=== PATIENT | female | born 1950 | race Caucasian/White ===

== ENCOUNTER 2024-08-09 12:30 | Emergency (ER) | payer MEDICARE ==
--- NOTE | 2024-08-09 12:32 | ED ---
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 ROS Other: All systems not noted in ROS Statement are negative. General Exam General appearance: alert, in no apparent distress Head exam: Present: normocephalic, normal inspection. Absent: atraumatic (8 cm facial laceration) Eye exam: Present: normal appearance, PERRL, EOMI. Absent: scleral icterus, conjunctival injection, periorbital swelling ENT exam: Present: normal exam, mucous membranes moist Neck exam: Present: normal inspection. Absent: tenderness, meningismus, lymphadenopathy Respiratory exam: Present: normal lung sounds bilaterally. Absent: respiratory distress, wheezes, rales, rhonchi, stridor Cardiovascular Exam: Present: regular rate, normal rhythm, normal heart sounds. Absent: systolic murmur, diastolic murmur, rubs, gallop, clicks GI/Abdominal exam: Present: soft, normal bowel sounds. Absent: distended, tenderness, guarding, rebound, rigid Extremities exam: Present: normal inspection, full ROM, normal capillary refill. Absent: tenderness, pedal edema, joint swelling, calf tenderness Back exam: Present: normal inspection Neurological exam: Present: alert, oriented X3, CN II-XII intact Psychiatric exam: Present: normal affect, normal mood Skin exam: Present: warm, dry, intact, normal color. Absent: rash Course Vital Signs 01/08/09/24 08/09/24 12:38 12:40 13:04 Temperature Pulse Rate 72 68 Respiratory 18 18 20 Rate Blood Pressure 190/67 O2 Sat by Pulse 83 L 100 Oximetry 08/09/24 08/09/24 08/09/24 13:15 14:00 15:06 Temperature Pulse Rate 67 71 77 Respiratory 16 16 16 Rate Blood Pressure 194/70 178/70 156/49 O2 Sat by Pulse 100 99 100 Oximetry 08/09/24 15:30 Temperature 97.8 F Pulse Rate Respiratory Rate Blood Pressure O2 Sat by Pulse Oximetry - Reevaluation(s) Reevaluation #1: 08/09/24 13:02 Medical records reviewed Reevaluation #2: Patient has no change in symptoms here in the ER Reevaluation #3: Patient informed of results questions answered Reevaluation #4: Was pt. sent in by a medical professional or institution (, MAYUR, HUMAN RESOURCES ADVISOR, urgent care, hospital, or fpc...) When possible be specific @ -no Did you speak to anyone other than the patient for history (EMS, parent, family, police, friend...)? What history was obtained from this source @ -no Did you review nursing and triage notes (agree or disagree)? Why? @ -agree Are old charts reviewed (outside hosp., previous admission, EMS record, old EKG, old radiological studies, urgent care reports/EKG's, fpc records)? Report findings @ -yes Differential Diagnosis (chest pain, altered mental status, abdominal pain women, abdominal pain men, vaginal bleeding, weakness, fever, dyspnea, syncope, headache, dizziness, GI bleed, back pain, seizure, CVA, palpatations, mental health, musculoskeletal)? @ -prior EKG interpreted by me (3pts min.). @ -no X-rays interpreted by me (1pt min.). @ -no CT interpreted by me (1pt min.). @ -yes negative for acute disease U/S interpreted by me (1pt. min.). @ -no What testing was considered but not performed or refused? (CT, X-rays, U/S, labs)? Why? @ -none What meds were considered but not given or refused? Why? @ -none Did you discuss the management of the patient with other professionals (professionals i.e. Dr., PA, HUMAN RESOURCES ADVISOR, lab, RT, psych nurse, pediatric social worker, welt butter hand, teacher, chief information officer, complex case manager)? Give summary @ -no Was smoking cessation discussed for >3mins.? @ -no Was critical care preformed (if so, how long)? @ -no Were there social determinants of health that impacted care today? How? (Homelessness, low income, unemployed, alcoholism, drug addiction, transportation, low edu. Level, literacy, decrease access to med. care, fdc, rehab)? @ -none Was there de-escalation of care discussed even if they declined (Discuss DNR or withdrawal of care, Hospice)? DNR status @ -no What co-morbidities impacted this encounter? (DM, HTN, Smoking, COPD, CAD, Cancer, CVA, ARF, Chemo, Hep., AIDS, mental health diagnosis, sleep apnea, morbid obesity)? @ -none Was patient admitted / discharged? Hospital course, mention meds given and route, prescriptions, significant lab abnormalities, going to OR and other pertinent info. @ - 74 female with fall and head injury facial laceration repaired here in the ER patient can be discharged home Undiagnosed new problem with uncertain prognosis? @ -no Drug Therapy requiring intensive monitoring for toxicity (Heparin, Nitro, Insulin, Cardizem)? @ -no Were any procedures done? @ - laceration repair Diagnosis/symptom? @ -Fall, facial laceration repaired, head injury Acute, or Chronic, or Acute on Chronic? @ -Acute Uncomplicated (without systemic symptoms) or Complicated (systemic symptoms)? @ -Complicated Side effects of treatment? @ -no Exacerbation, Progression, or Severe Exacerbation? @ -exacerbation Poses a threat to life or bodily function? How? (Chest pain, [place], [place], pneumonia, PE, COPD, DKA, ARF, appy, cholecystitis, CVA, Diverticulitis, Homicidal, Suicidal, threat to staff... and all critical care pts) @ -yes head injury on Coumadin fall laceration Reevaluation #5: Differential Headache: Migraine, tension, cluster, carbon monoxide, central venous thrombosis, pension karma temporal arteritis, acute closure glaucoma, intercranial hemorrhage, mastoiditis, sinusitis, head injury, this is not meant to be an all-inclusive list. Procedures - Laceration Laceration #1 Consent Obtained: verbal consent Indication: laceration Site: face Size (cm): 8 Description: linear, stellate Anesthetic Used: lidocaine 1%, with epi Pre-repair: wound explored, irrigated extensively, deep structures intact Type of Sutures: nylon Technique: simple, interrupted Complications: pain Medical Decision Making - Medical Decision Making 74 female with fall and head injury facial laceration repaired here in the ER patient can be discharged home - Lab Data Result diagrams: 08/09/24 12:56 08/09/24 12:56 Lab Results 08/09/24 08/09/24 08/09/24 Range/Units 12:56 12:56 12:56 WBC 5.4 (3.8-10.6) k/uL RBC 3.50 L (3.80-5.40) m/uL Hgb 9.7 L (11.4-16.0) gm/dL Hct 29.9 L (34.0-46.0) % MCV 85.6 (80.0-100.0) fL MCH 27.9 (25.0-35.0) pg MCHC 32.6 (31.0-37.0) g/dL RDW 16.8 H (11.5-15.5) % Plt Count 117 L (150-450) k/uL MPV 8.1 Neutrophils % 74 % Lymphocytes % 15 % Monocytes % 6 % Eosinophils % 3 % Basophils % 0 % Neutrophils # 4.0 (1.3-7.7) k/uL Lymphocytes # 0.8 L (1.0-4.8) k/uL Monocytes # 0.3 (0-1.0) k/uL Eosinophils # 0.2 (0-0.7) k/uL Basophils # 0.0 (0-0.2) k/uL Hypochromasia Slight Anisocytosis Slight PT 16.8 H (10.0-12.5) sec INR 1.6 H (<1.2) APTT 28.3 (22.0-30.0) sec Sodium 139 (137-145) mmol/L Potassium 4.7 (3.5-5.1) mmol/L Chloride 104 (98-107) mmol/L Carbon Dioxide 26 (22-30) mmol/L Anion Gap 9 mmol/L BUN 30 H (7-17) mg/dL Creatinine 1.65 H (0.52-1.04) mg/dL Est GFR (CKD-EPI)AfAm 35 (>60 ml/min/1.73 sqM) Est GFR (CKD-EPI)NonAf 30 (>60 ml/min/1.73 sqM) Glucose 98 (74-99) mg/dL Calcium 9.1 (8.4-10.2) mg/dL Phosphorus 5.0 H (2.5-4.5) mg/dL Magnesium 1.9 (1.6-2.3) mg/dL Total Bilirubin 0.5 (0.2-1.3) mg/dL AST 31 (14-36) U/L ALT 19 (4-34) U/L Alkaline Phosphatase 109 (38-126) U/L Troponin I (0.000-0.034) ng/mL NT-Pro-B Natriuret Pep 5370 pg/mL Total Protein 6.3 (6.3-8.2) g/dL Albumin 4.2 (3.5-5.0) g/dL 08/09/24 Range/Units 12:56 WBC (3.8-10.6) k/uL RBC (3.80-5.40) m/uL Hgb (11.4-16.0) gm/dL Hct (34.0-46.0) % MCV (80.0-100.0) fL MCH (25.0-35.0) pg MCHC (31.0-37.0) g/dL RDW (11.5-15.5) % Plt Count (150-450) k/uL MPV Neutrophils % % Lymphocytes % % Monocytes % % Eosinophils % % Basophils % % Neutrophils # (1.3-7.7) k/uL Lymphocytes # (1.0-4.8) k/uL Monocytes # (0-1.0) k/uL Eosinophils # (0-0.7) k/uL Basophils # (0-0.2) k/uL Hypochromasia Anisocytosis PT (10.0-12.5) sec INR (<1.2) APTT (22.0-30.0) sec Sodium (137-145) mmol/L Potassium (3.5-5.1) mmol/L Chloride (98-107) mmol/L Carbon Dioxide (22-30) mmol/L Anion Gap mmol/L BUN (7-17) mg/dL Creatinine (0.52-1.04) mg/dL Est GFR (CKD-EPI)AfAm (>60 ml/min/1.73 sqM) Est GFR (CKD-EPI)NonAf (>60 ml/min/1.73 sqM) Glucose (74-99) mg/dL Calcium (8.4-10.2) mg/dL Phosphorus (2.5-4.5) mg/dL Magnesium (1.6-2.3) mg/dL Total Bilirubin (0.2-1.3) mg/dL AST (14-36) U/L ALT (4-34) U/L Alkaline Phosphatase (38-126) U/L Troponin I 0.014 (0.000-0.034) ng/mL NT-Pro-B Natriuret Pep pg/mL Total Protein (6.3-8.2) g/dL Albumin (3.5-5.0) g/dL - EKG Data -: EKG Interpreted by Me (EKG is sinus 66 MT 182 QRS 172 QTc 517) - Radiology Data Radiology results: report reviewed (CT brain C-spine negative for acute disease, CT facial bones chest and pelvis x-ray negative for acute disease), image reviewed Disposition Clinical Impression: Fall, Head injury, Coumadin toxicity, Laceration of forehead Disposition: HOME SELF-CARE Condition: Fair Instructions (If sedation given, give patient instructions): Care For Your Stitches (ED), Laceration (ED), Fall Prevention for Older Adults (ED) Is patient prescribed a controlled substance at d/c from ED?: No Referrals: Gordy Santana DO [Primary Care Provider] - 1-2 days Time of Disposition: 14:40
--- NOTE | 2024-08-09 12:56 | XR ---
EXAMINATION TYPE: XR chest 1V DATE OF EXAM: 08/09/2024 12:51 PM COMPARISON: None TECHNIQUE: XR chest 1V Frontal view of the chest. CLINICAL INDICATION:Female, 74 years old with history of fall; FINDINGS: Lungs/Pleura: There is no evidence of pleural effusion, focal consolidation, or pneumothorax. Heart/mediastinum: Cardiomediastinal silhouette is enlarged. Prominent pulmonary vasculature central ly. Musculoskeletal: No acute osseous pathology. Midline sternotomy wires are noted. Other: Right axillary surgical clips. IMPRESSION: Cardiomegaly and mild pulmonary vascular congestion. Correlate with BNP for congestive heart failure. [facility], , 08/09/2024 12:53 PM
[2024-08-09] MEDS: ONDANSETRON 4 MG/2 ML VIAL IVP STA (13:00)
[2024-08-09] MEDS: MORPHINE SULFATE 4 MG/ML SYRINGE IV STA (13:00)
[2024-08-09] MEDS: SODIUM CHLORIDE 0.9% 1,000 ML IV STA (13:02)
--- NOTE | 2024-08-09 13:12 | CT ---
EXAMINATION TYPE: CT brain nasra wo con DATE OF EXAM: 08/09/2024 COMPARISON: None CLINICAL INDICATION: Female, 74 years old with history of fall; PHH, fell hit head and left side of f chayito TECHNIQUE: CT scan of the head and cervical spine are performed without contrast. CT DLP: combined 1071.[address] CTDI: mGy Automated exposure control for dose reduction was used. Findings: Head CT: Ventricles, basal cisterns and sulci over convexities within normal limits for the patient's age and there is no mass, mass effect or shift of midline structures. No abnormal density is seen throughout the brain parenchyma and there is no acute intra or extra-axia l hemorrhage. There are postsurgical changes of the left partial mastoidectomy. There is fluid in the residual left mastoid air cells. The right mastoid air cells are well aerated. The intraorbital contents are symmetric Paranasal sinuses are well aerated. CT cervical spine: Craniovertebral junction relationships and prevertebral soft tissues are normal. The cervical vertebral segments are normal in height and alignment and there is no fracture subluxati on. There is [id number] degenerative disease with mild to moderate displacement and spondylosis at the C6-7 level. The remaining intervertebral disks within the cervical spine are well preserved in he ight. There is mild degeneration of the facet joints in the mid cervical spine and uncovertebral join ts are intact. There is no bony encroachment of the cervical canal. The paraspinal soft tissues unremarkable. IMPRESSION: 1. Head CT: No acute bleed or mass effect. Postsurgical changes involving left temporal bone. 2. CT cervical spine: No acute trauma. Mild degenerative changes in the mid-lower cervical spine as d escribed above. [facility], , 08/09/2024 1:10 PM
[2024-08-09] MEDS: SODIUM CHLORIDE 0.9% 1,000 ML IV SCH (13:14)
--- NOTE | 2024-08-09 13:16 | CT ---
EXAMINATION TYPE: CT facial bones wo con DATE OF EXAM: 08/09/2024 COMPARISON: None CLINICAL INDICATION: Female, 74 years old with history of fall; PHH, fell hit head and left side of f chayito TECHNIQUE: CT scan of the sinuses is performed without contrast, axial images are obtained, coronal reformatted images are also reviewed. CT DLP: combined 1071.[address] CTDI: mGy Automated exposure control for dose reduction was used. FINDINGS: There are no facial bone fractures. There is a small mucous retention cyst or polyp in the right maxi llary sinus otherwise the paranasal sinuses are well aerated. There are no air-fluid levels. The osti omeatal complexes are patent. IMPRESSION: No facial bone trauma. Incidental note is made of moderate to marked degenerative changes of the TMJs . [facility], , 08/09/2024 1:13 PM
--- NOTE | 2024-08-09 13:18 | XR ---
EXAMINATION TYPE: XR pelvis AP view DATE OF EXAM: 08/09/2024 12:51 PM INDICATION: Patient age:Female; 74 years old; Reason for study: fall; PHH. pain COMPARISON: None TECHNIQUE: The pelvis was examined in a single projection. FINDINGS: There is no evidence of fracture or dislocation. There is no soft tissue abnormality. Bila teral gluteal soft tissue calcifications. Multilevel degenerative changes of the lower spine. IMPRESSION: No acute osseous pathology. [facility], , 08/09/2024 1:16 PM
[2024-08-09 13:21] VITALS: RESP 16
[2024-08-09 13:21] LABS: Anisocytosis Slight; Basophils % (A) 0 %; Eosinophils # (A) 0.2 k/uL (0-0.7); Eosinophils % (A) 3 %; HCT 29.9 % (34.0-46.0); HGB 9.7 gm/dL (11.4-16.0); Hypochromasia Slight; Lymphocytes # (A) 0.8 k/uL (1.0-4.8); Lymphocytes % (A) 15 %; MCH 27.9 pg (25.0-35.0); MCHC 32.6 g/dL (31.0-37.0); MCV 85.6 fL (80.0-100.0); Mean Platelet Volume 8.1; Monocytes # (A) 0.3 k/uL (0-1.0); Monocytes % (A) 6 %; Neutrophils % (A) 74 %; Platelet Count 117 k/uL (150-450); RDW 16.8 % (11.5-15.5); WBC 5.4 k/uL (3.8-10.6)
[2024-08-09] MEDS: LIDOCAINE 1%-EPI 1:100,000 20 ML VIAL SQ STA (13:23)
[2024-08-09 13:34] LABS: INR 1.6 (<1.2); Partial Thromboplastin Time 28.3 sec (22.0-30.0); Prothrombin Time 16.8 sec (10.0-12.5)
[2024-08-09 13:44] LABS: ALT 19 U/L (4-34); AST 31 U/L (14-36); African American GFR (CKD) 35 (>60 ml/min/1.73 sqM); Albumin 4.2 g/dL (3.5-5.0); Alkaline Phosphatase 109 U/L (38-126); Anion Gap 9 mmol/L; Blood Urea Nitrogen 30 mg/dL (7-17); Calcium 9.1 mg/dL (8.4-10.2); Carbon Dioxide 26 mmol/L (22-30); Chloride 104 mmol/L (98-107); Glucose 98 mg/dL (74-99); Magnesium 1.9 mg/dL (1.6-2.3); Non-African American GFR(CKD) 30 (>60 ml/min/1.73 sqM); Potassium 4.7 mmol/L (3.5-5.1); Sodium 139 mmol/L (137-145); Total Bilirubin 0.5 mg/dL (0.2-1.3); Total Protein 6.3 g/dL (6.3-8.2)
[2024-08-09 13:50] LABS: NT-Pro-B-Type Natriuretic Pept 5370 pg/mL
[2024-08-09 15:12] VITALS: BP 156/49; PULSE 77
[2024-08-09] MEDS: LABETALOL 5 MG/ML VIAL MDV IVP STA (15:14)
[2024-08-09] MEDS: traMADol 50 MG STARTER PACK 3 TAB BTL PO STA (15:17)
[2024-08-09] MEDS: MORPHINE SULFATE 4 MG/ML SYRINGE IVP STA (15:25)
[2024-08-09 15:34] VITALS: TEMP 97.8
== END 2024-08-09 15:33 | disposition home or self-care (01) ==
LOC: EC 12:30
DX: S01.81XA Laceration without foreign body of other part of head, initial encounter (principal); T45.515A Adverse effect of anticoagulants, initial encounter; Z88.0 Allergy status to penicillin; W01.0XXA Fall on same level from slipping, tripping and stumbling without subsequent striking against object, initial encounter; Y92.512 Supermarket, store or market as the place of occurrence of the external cause
CPT/HCPCS: 36415; 93005; 83880; 80053; 83735; 84100; 84484; 85025; 85610; 85730; 72170; 71045; 72125; 70486; 70450; 99284; 96374; 96375; 96376; 96361; 12011; J2270; J2405